=== PATIENT | male | born 1960 | race Caucasian/White ===

== ENCOUNTER → 2017-08-25 12:13 | Outpatient (CLI) | payer BC, SELFPAY ==
[2017-08-25 12:26] LABS: Absolute Lymphocyte Count 1.97 X10^3/ul (0.83-4.51); Basophil# 0.03 X10^3/uL; Basophil% 0.4 % (0-1); Eosinophil# 0.23 X10^3/uL; Eosinophils% 3.4 % (0-5); Hemoglobin 15.8 g/dl (13.0-16.5); Lymphocyte # 1.97 X10^3/ul (4.0); Lymphocyte % 29.4 % (19-41); Mean Corp Hgb Conc 32.9 g/gl (32-36); Mean Corpuscular Volume 97.2 fL (80-94); Mean Platelet Vol. 9.8 fl (6.2-12.0); Monocyte# 0.47 X10^3/uL; Neutrophil # 3.97 X10^3/uL (2.7-7.7); Neutrophil % 59.5 % (47-70); Platelet Count 206 K/mm3 (150-450); RBC Distribution Width CV 12.8 % (11.6-14.6); RBC Distribution Width SD 44.9 fl (35.1-43.9); Red Blood Count 4.94 M/mm3 (4.6-6.2); White Blood Count 6.7 K/mm3 (4.4-11.0)
[2017-08-25 12:29] LABS: POSITIVE COUNT NO; POSITIVE DIFFERENTIAL NO; POSITIVE MORPHOLOGY NO
[2017-08-25 12:35] LABS: D-Dimer Quantitative (DVT/PE) 0.45 FEU/ug/m (0.27-0.49)
[2017-08-25 12:58] LABS: ALB/GLOB Ratio 1.1 RATIO (0.9-2.4); AST(SGOT) 20 U/L (15-37); Alanine Aminotransfer ALT/SGPT 42 U/L (16-61); Albumin, Serum 3.7 g/dL (3.2-5.0); Alkaline Phosphatase 73 U/L (45-117); Anion Gap 9 (5-15); BUN 15 mg/dL (7-18); BUN/Creat Ratio 13.2 RATIO (10-20); Calcium,Total 8.8 mg/dL (8.5-10.1); Chloride 100 mmol/L (98-107); Creatinine, Serum 1.14 mg/dL (0.70-1.30); EST Glomerular Filtration Rate 71 mL/min (>60); Est Glom Filt Rate - Afr Amer 85 mL/min (>60); Globulin 3.3 g/dL (2.2-4.2); Glucose 88 mg/dL (74-106); Potassium 4.6 mmol/L (3.5-5.1); Sodium Level 139 mmol/L (136-145)
[2017-08-26 16:10] LABS: Creatine Kinase MB 0 % (0-3); Creatine Kinase MM 100 % (97-100); Creatine Kinase,Total,Serum 110 U/L (24-204); Macro I 0 % (Not Observed); Macro II 0 % (Not Observed)
[2017-08-27 09:46] LABS: Creatine Kinase BB 0 % (0)
[2017-08-31 11:46] LABS: Myoglobin, Serum 42 ng/mL (28-72)
== END ==
PROVIDERS: Visit Provider Nurse Practitioner
DX: R07.9 Chest pain, unspecified (principal)
CPT/HCPCS: 80053; 82550; 82552; 83874; 84484; 85025; 85379

== ENCOUNTER 2017-08-25 12:47 | Observation (INO) | payer BC, SELFPAY ==
[2017-08-25] VITALS (12 sets, daily range): BP systolic 121–150; BP diastolic 69–91; PULSE 68–99; RESP 14–23; TEMP 36.6–37; O2SAT 92–98; BMI 32.6; BMI 32.4; BMI 32.5
--- NOTE | 2017-08-25 13:03 | EKG12_ITS ---
Test Reason : CP Blood Pressure : / mmHG Vent. Rate : 082 BPM Atrial Rate : 082 BPM P-R Int : 156 ms QRS Dur : 088 ms QT Int : 332 ms P-R-T Axes : 062 032 034 degrees QTc Int : 387 ms Normal sinus rhythm Normal ECG Confirmed by EFRAIN PUCKETT MD ([id number]), copy editor RYLAN VARGAS ([id number]) on 08/31/2017 3:27:51 PM Referred By: Pat Su Confirmed By:EFRAIN PUCKETT MD
--- NOTE | 2017-08-25 13:10 | RAD_ITS ---
STUDY: X-RAY CHEST REASON FOR EXAM: Male, 57 years old. 2 week history of intermittent chest pressure and pain. TECHNIQUE: Single AP portable view of the chest. COMPARISON: None. FINDINGS: EKG electrodes are seen. Mild degree of increased markings at the left lung base suggestive of left basilar atelectasis. Blunting of the left costophrenic angle. Normal size heart. Normal mediastinum and elyse. Normal visualized pulmonary arteries. There is atherosclerotic tortuosity of the aortic arch and descending thoracic aorta. Normal visualized thoracic spine. Normal visualized ribs, clavicles, and shoulders. There is no demonstrated abnormality of the visualized soft tissue structures of the upper abdomen. RAD/Chest 1 View (Portable) IMPRESSION: Mild increased markings at the left lung base suggestive of left basilar atelectasis with blunting of the left costophrenic angle. Electronically Signed: Ravidner Osei MD at 13:31 EST Tel [phone], Service support ,
--- NOTE | 2017-08-25 14:05 | ED.VISSUMM ---
- ER Visit Summary Date of Service: 08/25/17 Chief Complaint: [Chest pain] History of Present Illness: The patient is a 57 M [presents to the emergency department with chest discomfort since this morning. Patient had upper respiratory symptoms for approximately 2 weeks. Patient was started on Augmentin and Tessalon Perles couple weeks ago. Patient continues to have a dry cough. Patient did have recent travel in June as he went on a cruise. Patient does have a prior history of pulmonary embolism after surgery. Patient was seen by primary care physician in the office today and sent to the ER for further workup and evaluation of his chest discomfort. Patient describes a heaviness or tightness in the center of his chest like a 5 pound weight. Patient has been fatigued over the last several days. Although he denies any significant exertional dyspnea. He denies any radiation of the discomfort. No family history of heart disease. He has never had a stress test.] Physical Examination: [HEENT-PERRLA, EOMI. Cranial nerves II through XII grossly intact. TMs clear. Mucous membranes moist. No adenopathy. Cardiovascular-regular rate and rhythm without murmur or ectopy Lungs-clear to auscultation, chest wall stable without crepitus or subcu emphysema Abdomen-normoactive bowel sounds, soft, nontender, no rebound or rigidity, no peritoneal signs. Extremities-intact ?4, normal range of motion, normal pulses, atraumatic] Test Results: [EKG obtained on arrival shows sinus rhythm with a ventricular rate of 82 bpm with no acute ST segment changes. Lab work sent by primary care physician showed a CBC with differential that was normal. Chemistries were normal. Troponin was less than 0.02. D-dimer is normal 0.45. Chest x-ray obtained today showed left basilar atelectasis otherwise nothing acute.] Emergency Department Course and Treatment: [And received aspirin in the emergency department. Patient was ordered nitroglycerin sublingual.] Treatment Plan: [Admit for further workup and evaluation of his chest pain] Disposition: [Admit] Impression: [Chest pain-rule out acute coronary syndrome] This note was generated with [employer] dictation software. It may contain incorrect words, spelling, and punctuation that were not noted in review of the chart prior to signing ED Disposition - Plan for ED Patient: Chief Complaint: Chest Pain Referrals: Laura Quarles DO [Primary Care Provider] -
[2017-08-25] MEDS: Aspirin 81 MG TAB.CHEW 324 MG PO (14:06)
[2017-08-25] MEDS: 0.9% Normal Saline 1,000 ML 150 ML IV (14:08)
--- NOTE | 2017-08-25 15:03 | ECHOD_ITS ---
Reason For Study: Chest Pain Procedure This was a 2D Doppler, Color Flow transthoracic echocardiogram. Exam performed portable in patient room. Left Ventricle Normal size and thickness. The estimated ejection fraction is 65 %. Normal diastology for age. No regional wall motion abnormalities noted. Right Ventricle Normal size and thickness. Normal systolic function. Atria Normal left atrium. Normal right atrium. Normal atrial septum. Mitral Valve The mitral valve is structurally normal. No prolapse or stenosis seen. Equivocal mitral valve prolapse. Trivial mitral valve insufficiency. Tricuspid Valve Normal tricuspid valve. Trivial tricuspid valve insufficiency. Right ventricular systolic pressure estimated to be 25 mmHg. Aortic Valve Normal aortic valve. Trisinus/trileaflet aortic valve. Pulmonic Valve Normal pulmonic valve. Great Vessels Normal aortic root. Normal arch. Normal inferior vena cava. Inferior vena cava collapse with sniff. Pericardium/Pleural No pericardial effusion. MMode/2D Measurements & Calculations LVIDd: 4.4 cm IVSd: 1.0 cm Ao root diam: 3.2 cm LVIDs: 3.1 cm LVPWd: 0.84 cm LA dimension: 3.8 cm RVDd: 4.3 cm FS: 31.1 % LAV(MOD-bp): 34.5 ml LA A4 area: 14.1 cm2 RA A4 area: 13.3 cm2 LAV(MOD-bp) Indexed: 14.7 ml/m2 LAV(MOD-sp2): 32.6 ml LAV(MOD-sp4): 33.0 ml Doppler Measurements & Calculations MV E max andrew: 63.8 cm/sec Lat Peak E' Andrew: 13.2 cm/sec Med Peak E' Andrew: 7.9 cm/sec MV A max andrew: 66.4 cm/sec E/E' lat: 4.8 E/E' med: 8.0 MV E/A: 0.96 Ao V2 max: 103.4 cm/sec LV V1 max: 81.6 cm/sec PA V2 max: 88.4 cm/sec Ao max P.3 mmHg LV V1 max P.7 mmHg Ao V2 mean: 81.9 cm/sec Ao mean P.8 mmHg Ao V2 VTI: 19.6 cm TR max anrdew: 221.6 cm/sec TR max P.6 mmHg Interpretation Summary The estimated ejection fraction is 65 %. Normal diastology for age. Trivial mitral valve insufficiency. Right ventricular systolic pressure estimated to be 25 mmHg. There is no comparison study available. Ordering Physician: Karen Carias Referring Physician: Laura Quarles Performed By: Yamilex Kasper RDCS, RVT
--- NOTE | 2017-08-25 15:37 | HP.PCM_ITS ---
<Dom Hancock - Last Filed: 08/25/17 15:25> Problem List (1) Chest pain, atypical Status: Acute History of Present Illness Date of Admission: 08/25/17 Chief Complaint: chest pain The patient is a 57 year old M who presented to the ER from his PCP's office with complaints of chest pain. He describes it as a chest pressure running along the sternum. It is rated at 6/10 but was relieved to a 1/10 with nitro with subsequent headache. He has no radiation into his neck back or arms, and no associated SOB or diaphoresis. He has had this for about 2.5 weeks. He initially went to urgent care and was placed on steroids, augmentin, and cough medicine for a suspected infection. The tightness however has not gone away. He does continue to have a cough. He has no fever or chills. He went to his PCP who did an ekg which had nonspecific T wave changes in V2-V5. He takes no medications regular, does not smoke, and has no immediate family hx of heart disease. Of note he did have testosterone and estrogen implants placed Jul 26 of this year for low testosterone as he was chronically fatigued. He denies recent trauma/injury/unusually heavy lifting. [] Past Medical History Allergies No Known Allergies Allergy (Verified 08/25/17 12:48) Home Medications: Ambulatory Orders Medication Instructions Recorded NK [NK] 08/25/17 Surgical History: total knee arthroplasty Psychiatric History: No pertinent psych hx Lives: Spouse/ Significant Other Smoking Status: Never smoker Tobacco Use: Non-smoker Alcohol: None Drugs: None - *Family History Maternal History Items: - - denies heart disease Paternal History Items: - - denies heart disease Sibling History Items: - - denies heart disease Review of Systems Constitutional: Reports: Fatigue. Denies: Chills, Fever, Weight Change HEENT: Denies: Head Aches, Sinus Congestion, Sinus Drainage Cardiovascular: Reports: Chest Pain, Chest Pressure, Chest Tightness. Denies: Edema, Heaviness, Light Headedness, Orthopnea, Palpitations, Paroxysmal Noc. Dyspnea, Syncope Respiratory: Reports: Cough. Denies: Shortness of Breath, Shortness of breath at rest, Shortness of breath upon exertion, Sputum production Gastrointestinal: Denies: Abdominal Pain, Constipation, Diarrhea, Nausea, Vomiting Genitourinary: Denies: Dysuria Musculoskeletal: Denies: Joint Pain, Joint Tenderness Skin: Denies: Rash, Wounds Neurological: Denies: Numbness, Tingling, Focal weakness Psychiatric: Denies: Anxiety, Depression, Homicidal Ideations, Suicidal Ideations Hematologic/ Lymphatic: Denies: Easy Bruising, Easy Bleeding VTE Information - Inpt Only VTE Present on Admission: No VTE Mechan Device Prophylaxis: SCD's VTE Pharm Prophylaxis ordered?: Yes - Physical Exam General: Alert, Oriented x3, Cooperative HEENT: Atraumatic, PERRLA, EOMI, Normocephalic Neck: Supple, No JVD, Negative Carotid Bruits Lungs: Clear to auscultation, Normal air movement Cardiovascular: Regular rate, No murmurs Abdomen: Bowel Sounds Present, Soft, Non Tender Extremities: No edema, Capillary Refill Less than 3 Seconds Skin: No rashes, No breakdown Musculoskeletal: No Tenderness to Palpation of Joints or Extremities Neurological: Cranial nerves II-XII grossly intact Psych/Mental Status: Normal Affect, Appropriate Vital Signs Temp Pulse Resp BP Pulse Ox 98 F 93 23 H 124/75 H 94 08/25/17 12:49 08/25/17 14:48 08/25/17 14:48 08/25/17 14:48 08/25/17 14:48 Weight: 111.629 kg Body Mass Index (BMI) 32.4 Assessment/Plan 1. Atypical chest pain for 2.5 weeks failed treatment for sinusitis with augmentin, prednisone described as midsternal Chest pressure/tightness. Nonspecific T wave changes V2-V5. Troponin neg. Risk factors include age, hormone therapy, pain 6/10 relieved with nitro to 1/10, and EKG changes. Cycle troponin. Repeat EKG in AM. Stress test in AM. Maintain tele. Daily asa. Check lipids. No reported family hx. 2. Low T - chronic fatigue - T/E2 implants Jul 26 2017 DVT ppx: lovenox DC planning: pending stress results. This patient was seen by Dom Hancock PA-C under the supervision of Dr. Carias. <Karen Carias - Last Filed: 08/25/17 20:00> History of Present Illness The patient is a 57 year old M [] Past Medical History Allergies No Known Allergies Allergy (Verified 08/25/17 12:48) - Physical Exam Vital Signs Temp Pulse Resp BP Pulse Ox 98.6 F 90 14 126/73 H 95 08/25/17 15:31 08/25/17 16:17 08/25/17 15:31 08/25/17 15:31 08/25/17 15:31 Oxygen Delivery Method Room Air Weight: 111.629 kg Body Mass Index (BMI) 32.4 Laboratory Tests Past 24 Hrs 08/25/17 08/25/17 16:46 16:46 Troponin I < 0.02 TSH 4.24 H Assessment/Plan This patient was seen in conjunction with YOSHI Dahl. I have independently interviewed and examined the patient and reviewed pertinent historical, laboratory, and other data. Please refer to YOSHI Dahl note for his patient's presentation, findings, and recommendations. I have reviewed and his note and concur with his documentation. Patient seen and examined. He complains of chest discomfort/tightness ongoing for almost 2 weeks. Treated for bronchitis with augmentin and prednisone in the outpatient. Pain is described as pressure, substernal, comes and goes, non- radiating, no known aggravating or relieving factors. Did finally get some relief 2 hours ago. Has had a total of 4 nitros today. Vitals reviewed, stable. Physical Exam: Gen: Comfortable, not pale, not jaundiced, well built CVS:HS I +II, regular, no murmurs RESP:Clinically clear to auscultation GI: Full, firm, nontender, no palpable organs EXT: No edema ASSESSMENT: 1. Chest pain, atypical 2. Hypogonadism, s/p testosterone implants Plan: Admit to PCU, monitor on telemetry, trend troponins, lipid profile, HgbA1c, stress test in am - patient prefers exercise stress test Code Visit OBSV E&M: 08715 Initial observation care L3
[2017-08-25] MEDS: Acetaminophen 325 MG Tablet 650 MG PO (16:58)
[2017-08-25 18:14] LABS: Thyroid Stim Hormone (TSH) 4.24 uIU/mL (0.358-3.74)
[2017-08-26] VITALS (7 sets, daily range): BP systolic 110–129; BP diastolic 64–79; PULSE 73–95; RESP 15–18; TEMP 36.4–36.9; O2SAT 94–96
[2017-08-26 03:54] LABS: Absolute Lymphocyte Count 2.04 X10^3/ul (0.83-4.51); Absolute Neutrophil Count 4.2 X10^3/uL (2.0-7.7); Basophil# 0.03 X10^3/uL; Basophil% 0.4 % (0-1); Eosinophil# 0.27 X10^3/uL; Eosinophils% 3.7 % (0-5); Hematocrit 45.3 % (40-54); Hemoglobin 15.1 g/dl (13.0-16.5); Lymphocyte # 2.04 X10^3/ul (4.0); Mean Corp Hgb Conc 33.3 g/gl (32-36); Mean Corpuscular Hgb 32.2 pg (27.0-32.0); Mean Corpuscular Volume 96.6 fL (80-94); Mean Platelet Vol. 9.3 fl (6.2-12.0); Monocyte# 0.67 X10^3/uL; Monocyte% 9.2 % (0-10); Neutrophil # 4.24 X10^3/uL (2.7-7.7); Neutrophil % 58.3 % (47-70); Platelet Count 178 K/mm3 (150-450); RBC Distribution Width CV 12.5 % (11.6-14.6); RBC Distribution Width SD 43.3 fl (35.1-43.9); Red Blood Count 4.69 M/mm3 (4.6-6.2); White Blood Count 7.3 K/mm3 (4.4-11.0)
[2017-08-26 03:55] LABS: POSITIVE COUNT NO; POSITIVE DIFFERENTIAL NO; POSITIVE MORPHOLOGY NO
[2017-08-26 04:26] LABS: ALB/GLOB Ratio 0.9 RATIO (0.9-2.4); AST(SGOT) 14 U/L (15-37); Alanine Aminotransfer ALT/SGPT 34 U/L (16-61); Albumin, Serum 3.1 g/dL (3.2-5.0); Alkaline Phosphatase 57 U/L (45-117); Anion Gap 6 (5-15); BUN 16 mg/dL (7-18); BUN/Creat Ratio 12.4 RATIO (10-20); Calcium,Total 8.6 mg/dL (8.5-10.1); Chloride 103 mmol/L (98-107); Cholesterol 174 mg/dL (200); Creatinine, Serum 1.29 mg/dL (0.70-1.30); EST Glomerular Filtration Rate 61 mL/min (>60); Est Glom Filt Rate - Afr Amer 74 mL/min (>60); Estimated Creatinine Clearance 72.26 ml/min; Globulin 3.3 g/dL (2.2-4.2); Glucose 91 mg/dL (74-106); High Density Lipoprotein 30 mg/dL; Potassium 4.2 mmol/L (3.5-5.1); Protein, Total 6.4 g/dL (6.4-8.2); Sodium Level 140 mmol/L (136-145); Triglycerides 234 mg/dL; Very Low Density Lipoprotein 47 mg/dL (5-40)
[2017-08-26] MEDS: Aspirin E.C. 81 MG Tablet PO (05:48)
--- NOTE | 2017-08-26 05:55 | EKG12_ITS ---
Test Reason : AM EKG Blood Pressure : / mmHG Vent. Rate : 076 BPM Atrial Rate : 076 BPM P-R Int : 166 ms QRS Dur : 090 ms QT Int : 348 ms P-R-T Axes : 071 043 033 degrees QTc Int : 391 ms Normal sinus rhythm Normal ECG When compared with ECG of 25-AUG-2017 12:56, MANUAL COMPARISON REQUIRED, DATA IS UNCONFIRMED Confirmed by ITALO LÓPEZ, EFRAIN ([id number]), editor trade journal RYLAN VARGAS ([id number]) on 09/01/2017 1:19:51 PM Referred By: DR MAHMOOD Confirmed By:EFRAIN PUCKETT MD
[2017-08-26 09:47] LABS: Free T3 3.5 pg/mL (2.18-3.98); T4 Free Direct 0.84 ng/dL (0.76-1.46)
--- NOTE | 2017-08-26 10:18 | STRESSREP ---
Stress Test Report Treadmill EKG: Resting EKG: Normal sinus rhythm, normal axis, early repolarization abnormality noted. No previous myocardial infarction noted. Treadmill EKG: Patient exercised according to a Art protocol for 9 minutes and 0 seconds. He achieved a workload of 10.10 mets. Resting heart rate was initially 88 beats a minute and gay to maximum of 173 beats a minute which represents 105% of the maximal age bracket heart rate. Resting blood pressure was 138/88, and gay to maximum of 190/86. Test was terminated due to dyspnea. During exercise the patient's heart rate increased as expected. Patient had no anginal symptoms noted. Patient had rare PVC noted. No dynamic EKG changes noted during exercise or into recovery. Conclusions: Normal adequate treadmill EKG. Negative for ischemia by EKG criteria. No anginal symptoms noted. Average exercise capacity for age. Appropriate blood pressure response to exercise. Patient tolerated procedure well no complications.
--- NOTE | 2017-08-26 12:29 | DCINST_ITS ---
You will use the following diet at home:: Cardiac - Low cholesterol Discharge Activity: Return to Normal Activity Call your doctor if you observe: Shortness of breath, Dizziness, Fainting spells , Chest pain, Increased palpitations (irregular heartbeat) Instructions: ED Diet Cholesterol Lowering, Eating Heart-Healthy Foods Allergies/Adverse Reactions: Allergies No Known Allergies Allergy (Verified 08/25/17 12:48) Medications to take at Discharge Pantoprazole Sodium [Protonix] 20 mg PO DAILY #30 tab 08/26/17 The following prescriptions were given: Pantoprazole Sodium [Protonix] 20 mg PO DAILY #30 tab Primary Care Physician: Laura Quarles DO [Primary Care Provider] - Please follow up with your Primary Care Physician in: 1-2 Weeks Proposed Discharge Date: 08/26/17
--- NOTE | 2017-08-26 12:30 | PCM.DC.SUM ---
Discharge Date and Diagnosis Date of Admission: 08/25/17 Date of Discharge: 08/26/17 - Primary Discharge Diagnosis 1. Chest pain-ACS ruled out. Hospital Course and Treatment Imaging Results: Diagnostic Data Chest X-Ray 08/25/17 13:10 IMPRESSION: Mild increased markings at the left lung base suggestive of left basilar atelectasis with blunting of the left costophrenic angle. Electronically Signed: Ravinder Osei MD at 13:31 EST Tel [phone], Service support , Operations: None Procedures: 2-D Echocardiogram, Stress test Summary of Care Provided: The patient is a 57 year old M who presented to the emergency room 08/25/2017 due to chest pain. Chest pain has been occurring intermittently for approximately 2 weeks. He initially presented to urgent care where he was placed on oral prednisone, Augmentin and cough suppressant for suspected upper respiratory infection. EKG and primary care physician office showed nonspecific T-wave changes in V2 through V5. EKG in emergency room showed sinus rhythm with no ST changes. He has no prior medical history. He is not a smoker. No family history of heart disease. He did have testosterone and estrogen implants placed 07/26/2017 for low testosterone. Cardiac enzymes negative. Patient underwent nuclear stress test which was negative for ischemia. ACS ruled out. Chest x-ray showed mild markings at the left lung base suggestive of basilar atelectasis, nothing acute. Echo showed an EF 65%, RVSP 25mmHg. No leukocytosis. Vitals stable. Patient states chest pain is currently resolved. Suspect chest tightness was secondary to recent upper respiratory infection/cough or possible GERD. Will try PPI at discharge. Patient seen and examined prior to discharge. Heart rate regular rate and rhythm. Lungs clear. Abdomen soft, nontender. Neuro grossly intact. Vital signs stable. Patient is stable for discharge home with further follow-up with primary care physician. Discussed with patient low cholesterol diet. Recommend repeat lipid panel by primary care physician after trial of dietary modification. This patient was seen by SARAH Greene under the supervision of Dr. Geronimo. Discharge Diet: Low fat/ Low Cholesterol Discharge Activity: Return to Normal Activity Call your doctor if you observe: Shortness of breath, Dizziness, Fainting spells, Chest pain, Increased palpitations (irregular heartbeat) Home Medications: Medications to take at Discharge Pantoprazole Sodium [Protonix] 20 mg PO DAILY #30 tab 08/26/17 Following Prescrptions Were Given to Patient: Pantoprazole Sodium [Protonix] 20 mg PO DAILY #30 tab Primary Care Physician: Laura Quarles DO [Primary Care Provider] - Please follow up with your Primary Care Physician in: 1-2 Weeks Patient Instructions: Eating Heart-Healthy Foods, ED Diet Cholesterol Lowering Disposition: Home Minutes spent on discharge:: 35 Patient Condition:: Stable Meaningful Use Info Meaningful Use Diagnoses (Choose all that apply): None applicable
--- NOTE | 2017-08-26 12:36 | DS.PCM_ITS ---
Discharge Date and Diagnosis Date of Admission: 08/25/17 Date of Discharge: 08/26/17 - Primary Discharge Diagnosis 1. Chest pain-ACS ruled out. Hospital Course and Treatment Imaging Results: Diagnostic Data Chest X-Ray 08/25/17 13:10 IMPRESSION: Mild increased markings at the left lung base suggestive of left basilar atelectasis with blunting of the left costophrenic angle. Electronically Signed: Ravinder Osei MD at 13:31 EST Tel [phone], Service support , Operations: None Procedures: 2-D Echocardiogram, Stress test Summary of Care Provided: The patient is a 57 year old M who presented to the emergency room 08/25/2017 due to chest pain. Chest pain has been occurring intermittently for approximately 2 weeks. He initially presented to urgent care where he was placed on oral prednisone, Augmentin and cough suppressant for suspected upper respiratory infection. EKG and primary care physician office showed nonspecific T-wave changes in V2 through V5. EKG in emergency room showed sinus rhythm with no ST changes. He has no prior medical history. He is not a smoker. No family history of heart disease. He did have testosterone and estrogen implants placed 07/26/2017 for low testosterone. Cardiac enzymes negative. Patient underwent nuclear stress test which was negative for ischemia. ACS ruled out. Chest x-ray showed mild markings at the left lung base suggestive of basilar atelectasis, nothing acute. Echo showed an EF 65%, RVSP 25mmHg. No leukocytosis. Vitals stable. Patient states chest pain is currently resolved. Suspect chest tightness was secondary to recent upper respiratory infection/cough or possible GERD. Will try PPI at discharge. Patient seen and examined prior to discharge. Heart rate regular rate and rhythm. Lungs clear. Abdomen soft, nontender. Neuro grossly intact. Vital signs stable. Patient is stable for discharge home with further follow-up with primary care physician. Discussed with patient low cholesterol diet. Recommend repeat lipid panel by primary care physician after trial of dietary modification. This patient was seen by SARAH Greene under the supervision of Dr. Geronimo. Discharge Diet: Low fat/ Low Cholesterol Discharge Activity: Return to Normal Activity Call your doctor if you observe: Shortness of breath, Dizziness, Fainting spells , Chest pain, Increased palpitations (irregular heartbeat) Home Medications: Medications to take at Discharge Pantoprazole Sodium [Protonix] 20 mg PO DAILY #30 tab 08/26/17 Following Prescrptions Were Given to Patient: Pantoprazole Sodium [Protonix] 20 mg PO DAILY #30 tab Primary Care Physician: Laura Quarles DO [Primary Care Provider] - Please follow up with your Primary Care Physician in: 1-2 Weeks Patient Instructions: Eating Heart-Healthy Foods, ED Diet Cholesterol Lowering Disposition: Home Minutes spent on discharge:: 35 Patient Condition:: Stable Meaningful Use Info Meaningful Use Diagnoses (Choose all that apply): None applicable
== END 2017-08-26 12:29 | disposition home or self-care (01) ==
LOC: ED 13:06 → PCU 14:33
PROVIDERS: Nurse Practitioner Family; Admitting Provider Internal Medicine; Emergency Provider Emergency Medicine; Family Provider Internal Medicine; PCP Internal Medicine; Visit Provider Internal Medicine
DX: R07.89 Other chest pain (principal); Z86.711 Personal history of pulmonary embolism; R53.83 Other fatigue
CPT/HCPCS: 36415; 71045; 80053; 80061; 84439; 84443; 84481; 84484; 85025; 93005; 93017; 93306; 96360; 96361; 99218; 99285; J7030; A4216; G0378